=== PATIENT | female | born 1955 | race Caucasian/White ===

== ENCOUNTER 2018-02-25 10:22 | Emergency (ER) | payer OTHER ==
[~2018-02-25] VITALS: Ht 162.6 cm; Wt 57.1 kg
[~2018-02-25 10:22] MED LIST: XRL15 PO
[2018-02-25 10:27] VITALS: Ht 162.6 cm; Wt 57.1 kg
[2018-02-25] MEDS ORDERED: BENZONATATE 100MG CAP PO ONE (10:45)
[2018-02-25] MEDS ORDERED: DEXT1CAP PO (11:03)
--- NOTE | 2018-02-25 11:13 | DIAGNOSTIC IMAGING REPORT ---
CHEST 2 VIEWS ROUTINE CLINICAL HISTORY: Cough COMPARISON STUDY: No previous studies for comparison. FINDINGS: The cardiac and mediastinal contours are normal. There is no evidence of focal pulmonary consolidation. There is no evidence of failure. No pleural effusions are visualized.[ The patient appears mildly hyperinflated IMPRESSION: No active disease in the chest. Electronically signed by: Nikhil Villanueva M.D. 02/25/2018 11:12 AM Dictated Date/Time: 02/25/2018 11:11 AM
[2018-02-25] MEDS ORDERED: TOBR0.3S4 OP (11:31)
[2018-02-25] MEDS ORDERED: DOXY100C2 PO (11:31)
[2018-02-25 11:40] VITALS: BP 151/83; PULSE 103; TEMP 37; O2SAT 93
[2018-02-25] MEDS ORDERED: BENZ100C84 PO (16:37)
--- NOTE | 2018-02-25 16:37 | EMERGENCY ROOM VISIT NOTE ---
History Report prepared by Igor: Juan Cerna Under the Supervision of: Dr. Dariusz Feldman M.D. First contact with patient: 10:36 Chief Complaint: COUGH Stated Complaint: EYE DISCHARGE SEVERE COUG History of Present Illness The patient is a 63 year old female who presents to the Emergency Room with complaints of severe, persistent, non-productive cough beginning 3 weeks ago. She also states that her left eye was red and swollen upon waking this morning which prompted her visit to the ED. The patient notes that her cough is accompanied by a runny nose. She also notes that she experienced subjective fevers near the onset of her symptoms. The patient states that her cough is most severe in the morning upon waking. She denies any history of hypertension, but notes a history of clots in her lungs. The patient states that her present symptoms do not feel at all similar to her past incidences of pulmonary embolism. The patient reports that she is no longer taking Xarelto. She denies any vomiting, chest pain, shortness of breath, diarrhea, trouble urinating, or leg swelling. Source of History: patient Onset: 3 weeks ago. Position: other (global. ) Symptom Intensity: severe Timing: other (persistant ) Associated Symptoms: + fevers, No chest pain, No SOB, No vomiting, No diarrhea, No urinary symptoms Note: Associated Symptoms: Red and swollen left eye, Runny nose Denies: Leg swelling. Review of Systems See HPI for pertinent positives & negatives. A total of 10 systems reviewed and were otherwise negative. Past Medical & Surgical Medical Problems: (1) Hx of cardiac arrest Family History No significant family history Social History Smoking Status: Never Smoker Alcohol Use: none Drug Use: none Marital Status: Occupation Status: employed Current/Historical Medications Scheduled Dextromethorphan-Guaifenesin (Robitussin Cough+Chest Co 10-200 mg), 2 CAP PO UD Doxycycline Hyclate (Vibramycin), 100 MG PO BID Tobramycin Sulfate (Ophth) (Tobrex Oph Zhao), 2 DROPS OP Q6H Allergies Coded Allergies: No Known Allergies (Verified , 02/25/18) Physical Exam Vital Signs Date Time Temp Pulse Resp B/P (MAP) Pulse Ox O2 Delivery O2 Flow Rate FiO2 02/25/18 11:40 37.0 103 18 151/83 93 Room Air 02/25/18 10:27 36.7 122 18 149/89 96 Room Air Physical Exam Constitutional: Vital signs reviewed. The patient is coughing. Eyes: Pupils are equal round reactive to light. Left conjunctival injection with no discharge. ENT: Pharynx is clear without erythema or exudate. Mucous membranes are moist. Neck supple without meningeal signs. Respiratory: Clear to auscultation bilaterally. Breath sounds are equal bilaterally. Cardiovascular: Tachycardic heart rate 115. No rubs or gallops. GI: Soft, nondistended and nontender. Bowel sounds are present. Musculoskeletal: No peripheral edema. No lower extremity tenderness. Integumentary: No cyanosis. Neurological: The patient is awake and alert. No focal deficits. Psychiatric: Anxious. Medical Decision & Procedures ER Provider Diagnostic Interpretation: Radiology results as stated below per my review and the radiologist's interpretation: [~ rep ct add3]] CHEST 2 VIEWS ROUTINE CLINICAL HISTORY: Cough COMPARISON STUDY: No previous studies for comparison. FINDINGS: The cardiac and mediastinal contours are normal. There is no evidence of focal pulmonary consolidation. There is no evidence of failure. No pleural effusions are visualized.[ The patient appears mildly hyperinflated IMPRESSION: No active disease in the chest. Electronically signed by: Nikhil Villanueva M.D. 02/25/2018 11:12 AM Dictated Date/Time: 02/25/2018 11:11 AM Medications Administered Medications (Trade) Dose Ordered Sig/Braden Route Start Time Stop Time Status Last Admin Dose Admin Benzonatate (Tessalon Perles Cap) 200 mg NOW ONCE PO 02/25/18 10:45 02/25/18 10:46 DC 02/25/18 10:58 200 MG ED Course 1036: The patient was evaluated in room C05. A complete history and physical exam was performed. 1045: Ordered Benzonatate 200mg PO. 1100: I had a discussion with the patient regarding her test results. She would like to try a trial of antibiotics. I did explain to her that her symptoms may be viral due to her lack of fever. Upon reevaluation, the patient appeared to have improvement of her symptoms. I discussed tonight's findings with her. She verbalized agreement of the treatment plan. She was discharged home. Medical Decision This is a 63-year-old female presents with cough and left eye redness. Differential diagnosis includes acute bronchitis, viral URI, pneumonia, conjunctivitis. I did perform a limited focused review of portions of the patient's old chart on the electronic medical record. The patient has had no recent pertinent visits to this hospital. I did evaluate the patient as noted above. The patient is presenting with his to be conjunctivitis to her left eye. She also has had a cough for 3 weeks and is bothered by the cough itself. She denies any shortness of breath or chest pain. I did treat her with Tessalon Perles. I did order and personally review the patient's chest x-ray as described above. There is no evidence of pneumonia. I did discuss the test results with the patient. I did state that her symptoms could very well just be from a viral illness but the patient preferred to be treated with an antibiotic. She was therefore discharged with a prescription for doxycycline and Tessalon Perles and tobramycin eyedrops. Medication Reconcilliation Current Medication List: was personally reviewed by me Blood Pressure Screening Patient's blood pressure: Elevated blood pressure Blood pressure disposition: Referred to PCP The patient is hypertensive. Impression Primary Impression: Acute bronchitis Additional Impression: Conjunctivitis, left eye Scribe Attestation The scribe's documentation has been prepared under my direct and personally reviewed by me in its entirety. I confirm that the note above accurately reflects all work, treatment, procedures, and medical decision making performed by me. Departure Information Dispostion Home / Self-Care Prescriptions Doxycycline Hyclate (VIBRAMYCIN) 100 Mg Cap 100 MG PO BID for 10 Days, #20 CAP Prov: Dariusz Feldman M.D. 02/25/18 Tobramycin Sulfate (Ophth) (TOBREX OPH ZHAO) 0.3 % Zhao 2 DROPS OP Q6H for 7 Days, #1 BTL Prov: Dariusz Feldman M.D. 02/25/18 Referrals No Doctor, Assigned (PCP) Forms HOME CARE DOCUMENTATION FORM, IMPORTANT VISIT INFORMATION Patient Instructions Bronchitis Acute, ED Conjunctivitis Nonspecific, My [facility] Additional Instructions You have been examined and treated today on an emergency basis only. This is not a substitute for, or an effort to provide, complete comprehensive medical care. It is impossible to recognize and treat all injuries or illnesses in a single emergency department visit. It is therefore important that you follow up closely with your physician. Call as soon as possible for an appointment. Return for worsening symptoms or if you develop a bad headache, loss of vision, chest pain, shortness of breath, fever, vomiting, or any other concerning symptoms. Problem Qualifiers Primary Impression: Acute bronchitis Bronchitis organism: unspecified organism Qualified Codes: J20.9 - Acute bronchitis, unspecified Additional Impression: Conjunctivitis, left eye Conjunctivitis type: acute Acute conjunctivitis type: unspecified Qualified Codes: H10.32 - Unspecified acute conjunctivitis, left eye
== END 2018-02-25 11:42 | disposition home or self-care (01) ==
LOC: C.EDB 10:24 → C.EDC 11:42
DX: J20.9 Acute bronchitis, unspecified (principal); H10.32 Unspecified acute conjunctivitis, left eye

== ENCOUNTER 2022-06-10 05:13 | Observation (INO) ==
--- NOTE | 2022-04-28 11:31 | PAT Medication Instructions ---
Medication Instructions Date of Service April 28, 2022 Home Medications aspirin 81 mg capsule 81 mg PO QAM atorvastatin 20 mg tablet 20 mg PO QAM calcium carbonate 500 mg calcium (1,250 mg) chewable tablet 500 mg PO HS meloxicam 15 mg tablet 15 mg PO QAM ASK your surgeon for instructions meloxicam 15 mg tablet 15 mg PO QAM Take morning of surgery With a small sip of water, OTHERWISE NOTHING TO EAT OR DRINK AFTER MIDNIGHT: aspirin 81 mg capsule 81 mg PO QAM (unless surgeon directed otherwise) atorvastatin 20 mg tablet 20 mg PO QAM Take evening before surgery calcium carbonate 500 mg calcium (1,250 mg) chewable tablet 500 mg PO HS Other Notes If you have any questions please call us at [phone] or [phone] or [phone] or [phone]
--- NOTE | 2022-04-28 15:26 | History & Physical Report ---
Date of Service April 28, 2022 Assessment & Plan (1) Avascular necrosis of bone of right hip: Plan: PRE-OP Diagnosis: Right hip degenerative joint disease (avascular necrosis) Planned Procedure: Total hip arthroplasty Plan: Patient is scheduled to undergo this procedure at the [facility] with a 23-hour observation admission with Dr. Mendez on , May 06, 2022. Risks and complications of the procedure such as: Infection, bleeding, pain, scarring, nerve blood vessel damage, weakness, wound problems, stiffness, incomplete relief of symptoms, hardware failure, hardware loosening, wear, fracture, tendon or ligament injury, dislocation, leg length inequality, blood clots, Embolism, heart attack, stroke and were explained to the patient at her visit today. Informed consent to perform the procedure was obtained. Patient also understands risks of proceeding with surgical intervention during the COVID-19 pandemic. Currently she is asymptomatic and understands that she will need to be tested prior to surgery. Patient states she has an appointment with anesthesia later today while there she will obtain a CBC with differential, complete metabolic panel, PT/INR, blood type and screen, urinalysis, urine culture and sensitivity, EKG, hemoglobin A1c and a nasal culture for MRSA. She also has an upcoming appointment with her primary care provider Dr. Sarmiento for surgical clearance. Patient states that she plans on doing in-home physical therapy for the first 1 to 2 weeks postoperatively with [facility] home care. She states that she has a walker, raised toilet seat, shower chair and a hip kit that she will borrow from her sister. During today's visit we reviewed the total hip packet as well as precautions. We discussed discharge planning from the hospital. I provided her with paperwork to Obtain a handicap placard for her vehicle. We discussed lectures offered by [facility] in regards to joint replacement surgery via Zoom. I advised the patient that upon discharge from hospital we will prescribe her with a narcotic pain medication and anti-inflammatory. Due to her previous history of a DVT we will have her on Xarelto for the first 30 days postoperatively for blood clot prevention. Patient will be scheduled for 2-week postoperative follow-up visit with Shanel Trinh PA-C on May 21 at 9:30 AM. At that visit we will most likely implants an order for outpatient physical therapy and provide her rehab protocol. Patient verbalizes understanding of all information provided during today's visit. She thanks for the care that she received. If she has questions or concerns that should arise prior to her surgery, she will contact clinic. History of Present Illness Chief Complaint: Chief Complaint: Severe right hip pain Primary Care Provider: Eliud Martinez MD History of Present Illness (including history relevant to procedure): 67-year-old female presents the clinic today for her preoperative history and physical. Patient complains of severe right hip pain for the past 2 years. She states she was previously followed by orthopedics at [facility] in [facility], but has come to us for second opinion. She states she has had corticosteroid injections used oral anti-inflammatory agents and done therapy without any relief of her pain. She feels that therapy seem to exacerbate it. She states the pain is affecting her ability to work. She walks with a cane and a severely antalgic gait. Patient states that she has missed approximately 80 days of work this year and is afraid she may be fired due to this. She would like to undergo surgical intervention soon as possible. Review Of Systems: A 12 point review of systems is formed and is unremarkable except for those things stated in the HPI and past medical history. Past Medical History: Problems: Hypercholesterolemia Procedure History Procedure Procedure Date Comments Bilateral knee arthroscopy Shoulder surgery Allergies and Sensitivities: No Known Medication Allergies Social history: Patient states that she smokes 1 to 2 cigarettes/week. She may have 1-2 drinks of alcohol per week as well. She denies illicit drug use Family history: Cancer Current Home Meds: (Last Updated 04/28 13:13) aspirin (aspirin 81 mg oral capsule) atorvastatin meloxicam (meloxicam 15 mg oral tablet) 15 mg PO Daily Initial Wt: 04/28 60.6 kg 133 lb Allergies Allergy/AdvReac Type Severity Reaction Status Date / Time No Known Allergies Allergy Verified 04/28/22 10:12 Home Medications Medication Instructions Recorded Confirmed Type aspirin 81 mg capsule 81 mg PO QAM 04/28/22 04/28/22 History atorvastatin 20 mg tablet 20 mg PO QAM 04/28/22 04/28/22 History calcium carbonate 500 mg calcium 500 mg PO HS 04/28/22 04/28/22 History (1,250 mg) chewable tablet meloxicam 15 mg tablet 15 mg PO QAM 04/28/22 04/28/22 History Past Med/Surg History Medical History Bilateral pulmonary embolism 2014, unknown etiology, previously on AC Hx of cardiac arrest Remote hx 2000 r/t severe electrolyte imbalance (K 2.1, Na 110) from diazide therapy for leg swelling, no issues since Hyperlipidemia Mild heartburn Right leg DVT 2014, unknown etiology, previously on AC Surgical History History of esophagogastroduodenoscopy (EGD) History of shoulder surgery Right shoulder manipulation (07/09/11): LMA[place]4 at [facility] History of tonsillectomy S/P MCL repair R/L S/P rotator cuff repair Pt unsure which side Family History Other No family history of adverse response to anesthesia Social History Smoking Status: Current some day smoker Cigarettes Per Day: 1-2 weekly; Second Hand Exposure: No; Hx Alcohol Use: Yes Alcohol type: beer Hx Substance Use: No Preferred Language: Belgian Communication Ability: Effective 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 Extraocular lids are intact Throat: Deferred due to COVID-19 precautions Cardiac: Regular rate and rhythm with no murmurs or gallops she had a Lungs: Clear to auscultation throughout with no wheezing, rales or rhonchi Abdomen: Nonobese, nondistended, nontender with NABS Extremities: Right hip: Flexion to 115 degrees. External rotation to 25 degrees and internal rotation to 10 degrees. Straight leg raise test is positive. Scour impingement test positive. Logroll test positive. Patient has referred pain to the groin with all of these movements. She walks with an antalgic gait. She is neurovascularly intact in the right lower extremity. Neuro: Cranial nerves II through XII are intact no motor or sensory deficit Skin: Normal in appearance with no open skin areas or discharge Results & Data ([facility]) Diagnostic Findings Studies (relevant to the procedure): X-rays done include AP pelvis, false- profile, and cross-table lateral views of the right hip. There is an old x-ray from December 2020 over a year ago for comparison. Between these 2 films, there has been interval collapse of her femoral head, which is flattened and is now eroding the superolateral acetabulum.
--- NOTE | 2022-05-03 11:23 | Anesthesiology Consultation ---
Date of Service May 03, 2022 Assessment & Plan (1) Encounter for pre-operative examination: - COVID screening: Per assessment on 05/03: No known COVID-19 positive contacts or current COVID-19 related symptoms. Travel screen negative. Surgeon arranging preop COVID testing. Awaiting results. - S/P Right shoulder manipulation (07/09/11): LMA#4 at [facility] [place] - PCP office visit (04/30/22): "I was able to get her labs from there, significant for hyponatremia, her sodium was 127.. In order to clear pt she would need to have another BMP to repeat to make sure sodium is normal. This was ordered. Suggested CXR and EKG will await the results of these tests prior to writing and signing clearance. I have her pre op paper, will hold to this in my office." EKG performed 05/03 ([place]) was unremarkable. Updated BMP done 05/04/22 showed mild improvement but still decreased sodium at 129. Awaiting final PCP clearance (Dr. Lorrie Holden/[facility]). Chart Review Chart Review: Patient NOT seen in Pre Admission Testing History Surgery Operation Date: 06/10/22 09:10 Proposed Procedures p Right Total Hip Arthroplasty - Godwin Mendez MD Height/Weight Height: 5 ft 4 in Weight: 58.967 kg Allergies Allergy/AdvReac Type Severity Reaction Status Date / Time No Known Allergies Allergy Verified 04/28/22 10:12 Medications Home Medications Medication Instructions Recorded Confirmed Last Taken aspirin 81 mg capsule 81 mg PO QAM 04/28/22 04/28/22 Unknown atorvastatin 20 mg tablet 20 mg PO QAM 04/28/22 04/28/22 Unknown calcium carbonate 500 mg calcium 500 mg PO HS 04/28/22 04/28/22 Unknown (1,250 mg) chewable tablet meloxicam 15 mg tablet 15 mg PO QAM 04/28/22 04/28/22 Unknown Past Medical History Medical History Bilateral pulmonary embolism 2014, unknown etiology, previously on AC Hx of cardiac arrest Remote hx 2000 r/t severe electrolyte imbalance (K 2.1, Na 110) from diazide therapy for leg swelling, no issues since Hyperlipidemia Mild heartburn Right leg DVT 2014, unknown etiology, previously on AC Past Family History Family History Other No family history of adverse response to anesthesia Past Surgical History Surgical History History of esophagogastroduodenoscopy (EGD) History of shoulder surgery Right shoulder manipulation (07/09/11): LMA#4 at [facility] [place] History of tonsillectomy S/P MCL repair R/L S/P rotator cuff repair Pt unsure which side Social History Smoking Status: Current some day smoker tobacco type: cigarettes Smoking cigarettes per day: 1-2 weekly Do You Dip or Chew Tobacco: No Hx Alcohol Use: Yes Alcohol type: beer alcohol intake frequency: a few times a month Hx Substance Use: No substance use type: does not use Lab Results Anesthesia Preop Results Results Anesthesia Widget: WBC 6.93 K/uL (4.8-10.8) 04/29/22 Hgb 14.9 g/dL (12.0-16.0) 04/29/22 Hct 42.6 % (37-47) 04/29/22 Plt 399 K/uL (130-400) 04/29/22 Na 129 mmol/L (136-145) L 05/04/22 K 3.8 mmol/L (3.5-5.1) 05/04/22 Cl 98 mmol/L (98-107) 05/04/22 CO2 23 mmol/L (21-32) 05/04/22 BUN 4 mg/dl (6-23) L 05/04/22 Creat 0.58 mg/dl (0.6-1.2) L 05/04/22 Glucose Level 98 mg/dl (70-99(Fasting)) 05/04/22 PT 10.4 Seconds (9.0-12.0) 04/29/22 INR 1.0 (0.9-1.1) 04/29/22 HA1c 5.5 % (4.5-5.6) 04/29/22 Urine Color Yellow 05/03/22 Urine Appearance Clear (Clear) 05/03/22 Urine pH 6.5 (4.5-7.5) 05/03/22 Urine Specific [place] 1.002 (1.000-1.030) 05/03/22 Urine Protein Negative (Negative) 05/03/22 Urine Glucose (UA) Negative (Negative) 05/03/22 Urine Ketones Negative (Negative) 05/03/22 Urine Blood 1+ (Negative) H 05/03/22 Urine Nitrite Negative (Negative) 05/03/22 Urine Bilirubin Negative (Negative) 05/03/22 Urine Urobilinogen Negative (Negative) 05/03/22 Urine Leukocyte Esterase 2+ (Negative) H 05/03/22 Testing Electrocardiogram Date: 05/03/22 NSR at 87bpm. Chest X-Ray Date: 05/04/22 FINDINGS: Frontal and lateral radiographs of the chest demonstrate the cardiomediastinal silhouette to be within normal limits. The lungs are hyperinflated with flattening of the hemidiaphragms and increase in the retrosternal space characteristic of underlying chronic obstructive pulmonary disease. The lungs are clear of alveolar opacities. There is no evidence for effusion bilaterally. There is no evidence for vascular congestion. There is no acute osseous pathology. IMPRESSION: No acute cardiopulmonary disease. Mild to moderate COPD.
--- NOTE | 2022-06-02 15:08 | History & Physical Report ---
Date of Service June 02, 2022 Assessment & Plan (1) Avascular necrosis of bone of right hip: Plan: PRE-OP Diagnosis: Right hip degenerative joint disease (avascular necrosis) Planned Procedure: Right Total hip arthroplasty Plan: Patient is scheduled to undergo this procedure at the [facility] with a 23-hour observation admission with Dr. Mendez on , June 10, 2022. Risks and complications of the procedure such as: Infection, bleeding, pain, scarring, nerve blood vessel damage, weakness, wound problems, stiffness, incomplete relief of symptoms, hardware failure, hardware loosening, wear, fracture, tendon or ligament injury, dislocation, leg length inequality, blood clots, Embolism, heart attack, stroke and were explained to the patient at her visit today. Informed consent to perform the procedure was obtained. Patient also understands risks of proceeding with surgical intervention during the COVID-19 pandemic. Currently she is asymptomatic and understands that she will need to be tested prior to surgery. Patient has already met with anesthesia and has an up-to-date CBC with differential, complete metabolic panel, PT/INR, blood type and screen, urinalysis, urine culture and sensitivity, EKG, hemoglobin A1c and a nasal culture for MRSA. Preoperative medical clearance from Dr. Sarmiento has been obtained. Patient states that she plans on doing in-home physical therapy for the first 1 to 2 weeks postoperatively with [facility]. Patient states that she will most likely elect to do her outpatient physical therapy at [facility] in [place]. She states that she has a walker, raised toilet seat, shower chair and a hip kit that she will borrow from her sister. During today's visit we reviewed the total hip packet as well as precautions. We discussed discharge planning from the hospital. I provided her with paperwork to Obtain a handicap placard for her vehicle. We discussed lectures offered by [facility] in regards to joint replacement surgery via Zoom. I advised the patient that upon discharge from hospital we will prescribe her with a narcotic pain medication and anti-inflammatory. Due to her previous history of a DVT we will have her on Xarelto for the first 30 days postoperatively for blood clot prevention. Patient will be scheduled for 2-week postoperative follow-up visit with Myself on June 23 at 1 PM. At that visit we will Provide the patient with an order for outpatient physical therapy and provide her rehab protocol. Patient verbalizes understanding of all information provided during today's visit. She thanks for the care that she received. If she has questions or concerns that should arise prior to her surgery, she will contact clinic. History of Present Illness Chief Complaint: Chief Complaint: Severe right hip pain Primary Care Provider: Eliud Martinez MD History of Present Illness (including history relevant to procedure): 67-year-old female presents the clinic today for her preoperative history and physical. Patient complains of severe right hip pain for the past 2 years. She states she was previously followed by orthopedics at [facility] in [facility], but has come to us for second opinion. She states she has had corticosteroid injections used oral anti-inflammatory agents and done therapy without any relief of her pain. She feels that therapy seem to exacerbate it. She states the pain is affecting her ability to work. She walks with a cane and a severely antalgic gait. Patient states that she has missed approximately 80 days of work this year and is afraid she may be fired due to this. She would like to undergo surgical intervention soon as possible. Patient was initially scheduled for surgical intervention on May 06, But was canceled due to her history of tobacco use. Patient has been over 30 days tobacco free since her last visit. Review Of Systems: A 12 point review of systems is formed and is unremarkable except for those things stated in the HPI and past medical history. Past Medical History: Problems: Hypercholesterolemia Procedure History Procedure Procedure Date Comments Bilateral knee arthroscopy Shoulder surgery Allergies and Sensitivities: No Known Medication Allergies Social history: Patient states she has not used any type of tobacco product for over 30 days. She may have 1-2 drinks of alcohol per week as well. She denies illicit drug use Family history: Cancer Current Home Meds: (Last Updated 06/02 10:25) aspirin (aspirin 81 mg oral capsule) atorvastatin ciprofloxacin (Cipro 500 mg oral tablet) 500 mg PO tid UTI meloxicam (meloxicam 15 mg oral tablet) 15 mg PO Daily Initial Wt: 06/02 60.6 kg 133 lb Allergies Allergy/AdvReac Type Severity Reaction Status Date / Time No Known Allergies Allergy Verified 04/28/22 10:12 Home Medications Medication Instructions Recorded Confirmed Type aspirin 81 mg capsule 81 mg PO QAM 04/28/22 04/28/22 History atorvastatin 20 mg tablet 20 mg PO QAM 04/28/22 04/28/22 History calcium carbonate 500 mg calcium 500 mg PO HS 04/28/22 04/28/22 History (1,250 mg) chewable tablet meloxicam 15 mg tablet 15 mg PO QAM 04/28/22 04/28/22 History Past Med/Surg History Medical History Bilateral pulmonary embolism 2014, unknown etiology, previously on AC Hx of cardiac arrest Remote hx 2000 r/t severe electrolyte imbalance (K 2.1, Na 110) from diazide therapy for leg swelling, no issues since Hyperlipidemia Mild heartburn Right leg DVT 2014, unknown etiology, previously on AC Surgical History History of esophagogastroduodenoscopy (EGD) History of shoulder surgery Right shoulder manipulation (07/09/11): LMA#4 at [facility] History of tonsillectomy S/P MCL repair R/L S/P rotator cuff repair Pt unsure which side Family History Other No family history of adverse response to anesthesia Social History Smoking Status: Current some day smoker Cigarettes Per Day: 1-2 weekly; Second Hand Exposure: No; Hx Alcohol Use: Yes Alcohol type: beer Hx Substance Use: No Preferred Language: Tajik Communication Ability: Effective Accounts Payable Processor Required: No Beliefs That Will Affect Care: None marital status: Current Living Situation: Alone current occupational status: employed Feels Safe at Home: Yes Assistive Devices: Cane and Glasses Review of Systems All systems reviewed & are unremarkable except as noted in Subjective Physical Exam Physical Exam: Physical Exam: (relevant to the procedure, including heart and lung evaluation) General: Alert and oriented x3 with proper grooming and hygiene Eyes: Pupils are equal and reactive to light with accommodation. Extraocular lids are intact Throat: Deferred due to COVID-19 precautions Cardiac: Regular rate and rhythm with no murmurs or gallops she had a Lungs: Clear to auscultation throughout with no wheezing, rales or rhonchi Abdomen: Nonobese, nondistended, nontender with NABS Extremities: Right hip: Flexion to 115 degrees. External rotation to 25 degrees and internal rotation to 10 degrees. Straight leg raise test is positive. Scour impingement test positive. Logroll test positive. Patient has referred pain to the groin with all of these movements. She walks with an antalgic gait. She is neurovascularly intact in the right lower extremity. Neuro: Cranial nerves II through XII are intact no motor or sensory deficit Skin: Normal in appearance with no open skin areas or discharge Results & Data ([facility]) Diagnostic Findings Studies (relevant to the procedure): X-rays done include AP pelvis, false- profile, and cross-table lateral views of the right hip. There is an old x-ray from December 2020 over a year ago for comparison. Between these 2 films, there has been interval collapse of her femoral head, which is flattened and is now eroding the superolateral acetabulum. Code Status & VTE Plan VTE Prophylaxis Plan VTE Prophylaxis will be ordered: Yes
[~2022-06-10 05:13] MED LIST changes: +ROPIVACAINE 0.5% HCL/PF 150 MG, BUPIVACAINE 0.75% MPF 20 ML, EPINEPHrine 0.15 MG, Ketor... INFIL SCH; -XRL15 PO
[2022-06-10] MEDS ORDERED: ceFAZolin 2000MG 2,000 MG/15 ML SYR IV SCH (06:00)
[2022-06-10] MEDS ORDERED: traMADol HCL 50 MG TABLET PO SCH (06:00)
[2022-06-10] MEDS ORDERED: TRANEXAMIC ACID 1,000 MG **IV Pre-op IV SCH (06:00)
[2022-06-10] MEDS ORDERED: ROPIVACAINE 0.5% HCL/PF 150 MG, BUPIVACAINE 0.75% MPF 20 ML, EPINEPHrine 0.15 MG, Ketor... INFIL SCH (06:00)
[2022-06-10] MEDS ORDERED: Scopolamine 1 MG TDSY TD SCH (06:00)
[2022-06-10] MEDS ORDERED: LR 60ML/HR IV SCH (06:00)
[2022-06-10] MEDS ORDERED: LR 500ML BOLUS, THEN 15ML/HR IV SCH (06:00)
[2022-06-10] MEDS ORDERED: FAMOTIDINE 20 MG TAB PO SCH (06:00)
[2022-06-10] MEDS ORDERED: dexAMETHasone 4 MG TAB PO SCH (06:00)
[2022-06-10] MEDS ORDERED: TRANEXAMIC ACID 1,000 MG **IV Intra-op IV SCH (06:00)
[2022-06-10] MEDS ORDERED: CeleBREX 200 MG CAP PO SCH (06:00)
[2022-06-10] MEDS ORDERED: ACETAMINOPHEN 500 MG TAB PO SCH (06:00)
[2022-06-10] MEDS ORDERED: BUPIVACAINE 0.5 % 5 MG/1 ML PF 10ML VIAL ONE (06:24)
[2022-06-10] MEDS ORDERED: fentaNYL citrate 100 MCG/2 ML VIAL IV PRN (06:31)
[2022-06-10] MEDS ORDERED: ATROPINE SULFATE 0.1 MG/ML 10ML SYR IV PRN (06:31)
[2022-06-10] MEDS ORDERED: ePHEDrine sulfate 50 MG/ML AMP IV PRN (06:31)
[2022-06-10] MEDS ORDERED: ONDANSETRON INJ 2 MG/ML 2 ML VIAL IV PRN ×2 (06:31→10:32)
[2022-06-10] MEDS ORDERED: PROPOFOL IV EMULSION 10 MG/ML 20 ML VIAL IV ONE ×2 (06:35→07:57)
[2022-06-10] MEDS ORDERED: LIDOCAINE 2% MPF LOCAL 5 ML VIAL INFIL ONE (06:35)
[2022-06-10] MEDS ORDERED: MIDAZOLAM HCL 1 MG/ML 2ML VIAL ONE ×2 (06:35→07:24)
[2022-06-10] MEDS ORDERED: fentaNYL citrate 100 MCG/2 ML VIAL ONE (06:35)
[2022-06-10] MEDS ORDERED: ORTHO JOINT ANESTHETIC ONE (06:43)
--- NOTE | 2022-06-10 06:44 | History & Physical Bridge Note ---
Date of Service June 10, 2022 History & Physical Bridge Note I have examined the patient, reviewed the History & Physical and in the interval since the performance of the History & Physical I have noted the following changes of clinical significance: no changes noted
[2022-06-10] MEDS ORDERED: ceFAZolin 330 MG/ML 1 GM VIAL ONE (07:17)
[2022-06-10] MEDS ORDERED: PHENYLEPHRINE 100MCG/ML 5ML SYR ONE (07:19)
[2022-06-10] MEDS ORDERED: ePHEDrine sulfate 50 MG/ML AMP ONE (07:57)
--- NOTE | 2022-06-10 08:39 | Operative Report ---
Post Operative Report Pre & Post Diagnosis Operation Date: 06/10/22 07:00 Pre-Op Diagnosis: Avascular necrosis of bone of right hip Post-Op Diagnosis: Avascular necrosis of bone of right hip I identified the patient and participated in the time-out.: Yes Procedure Operation Date: 06/10/22 07:00 Actual Procedures p Right Total Hip Arthroplasty, Ganglion Cyst Excision(Right) - Godwin Mendez MD Surgeon Godwin Mendez MD Slicing Machine Operator/Tender Dilma Olmos MD and Umair Irene PA-C Estimated Blood Loss 100 Findings Consistent with Post-Op Diagnosis Approximately 6 x 4 cm oval-shaped ganglion cyst was noted coming off the posterior aspect of the hip capsule. This was excised en bloc and sent for permanent section Specimens 1. Right femoral head with synovitis 2. Right hip ganglion cyst Anesthesia Type Spinal MAC Complications none Disposition Disposition: Recovery Room Indications 67-year-old female with right hip avascular necrosis and end-stage osteoarthritis refractory to conservative management. X-rays demonstrate superior femoral head collapse and right lower extremity shortening. I had a long discussion with her about the risks and benefits of surgery, alternatives, and expected outcomes. After reviewing all these she elected to proceed with surgery. All questions were answered. Informed consent was signed. Description of Procedure Patient was identified in the preoperative holding area and the surgical site, right hip, was marked. A spinal anesthetic was placed, then the patient was brought back to the main operating room, placed in the operating table and moved into the lateral decubitus position. Axillary roll was placed. All bony prominences were padded. Perioperative antibiotics and tranexamic acid 1 gram IV were administered. Operative extremity was prepped and draped in the normal sterile fashion. Prior to incision a multidisciplinary timeout was called. All in the room were in agreement. We began by making an incision for a posterior approach to the hip. We dissected down through subcutaneous tissues to the level of the fascia. The fascia was incised in line with the incision. Charnley bow was placed. At this point we inspected the trochanteric bursa and fat covering the piriformis. There was a large approximately 6 x 4 cm oval soft mass that had the consistency of fluid within it. Clinically this was consistent with a ganglion cyst. Taking great care to protect the sciatic nerve I then carefully dissected the ganglion cyst off of its surrounding soft tissue attachments until the stalk was amputated at its connection to the posterior hip capsule medially on its insertion to the bone posteriorly. Upon amputating the cyst off the capsule abundant clear synovial type fluid came out from the cyst as well as the hip joint consistent with a ganglion cyst. The cyst was then passed off and sent for permanent section. Next, the piriformis and short external rotators were dissected off the posterior aspect of the hip. A box cut was made in the capsule. The femoral head was dislocated. There was a moderate amount of villous synovitis noted a long the capsular lining that was removed with electrocautery and the pituitary rongeur. The femoral neck cut was then made at our preoperative template. The acetabulum was then exposed. The labrum was sharply excised. Contents of the cotyloid fossa were removed with electrocautery. We then began reaming at a size 8 mm less than our preoperative template. We reamed up by [address] the way up to a size 52 mm cup. This gave us good bleeding cancellus bone circumferentially. The acetabulum was then irrigated out and dried. The real [place] Gription cup was then impacted down into position with 45 degrees of lateral opening and 25 degrees of anteversion. A single cancellous bone screw was placed up into the ilium. Excellent fixation was obtained. A trial liner for a 32 mm femoral head was then placed. Anterior and inferior osteophytes were then removed with an osteotome and rongeur. Next we turned our attention to the femur. The lateral neck was removed with a box osteotome. Intramedullary guide was used followed by the lateralizing reamer. We then reamed up to a size 4 [place] stem. We then broached all the way up to a size 3. We began trialing with a high offset neck and a +5 head. Hip was reduced. Leg lengths were symmetric. The hip was stable in extension and external rotation, and stable in the sleeper position. At 90 degrees of hip flexion the hip could be internally rotated 65 degrees before levering out of the cup. I was very happy with the stability exam. Therefore the hip was dislocated and the femoral trial was removed. The acetabulum was re-exposed, and the trial liner was removed. An Altrx polyethylene liner for a 32 mm femoral head was then impacted into the shell. The locking mechanism was checked to ensure that it had engaged which it had. The femur was re-exposed. The femoral canal was irrigated and dried. The real size 3 high offset [place] femoral stem was opened up. This was impacted down into position. It sat at the same level as the femoral trial. Therefore the 32 mm ceramic femoral head with a +5 mm offset was opened up and gently impacted down onto the trunnion. The hip was atraumatically reduced. Another 1 gram of IV tranexamic acid was started prior to closure. The wound was irrigated out with sterile Betadine solution. The periarticular injection cocktail was then placed. The short external rotators, piriformis, and posterior capsule were repaired through drill holes in the greater trochanter using #2 Vicryl. The fascia was run with a looped #1 PDS. The subcutaneous layer was closed with #1 PDS. The dermal layer was closed with 2-0 Vicryl. Zip line was used for the skin followed by a Silverlon dressing. A compressive dressing was then placed. The patient was then rolled supine. Leg lengths were rechecked and were symmetric. An abduction pillow was placed. Sedation was lifted and the patient was transferred to recovery room in stable condition. Summary of implants: Depuy [place] Gription Acetabular Shell Sector Cup, 52 mm outer diameter [place] Cancellous bone screw, 6.5 x 30 mm [place] Altrx Polyethylene Acetabular Liner, Neutral, with a 32 mm inner diameter DePuy Sarpy Femoral stem with Porocoat, 12/14 taper, size 3 high offset 32 mm ceramic femoral head with +5 offset Postoperative course: Patient will be admitted to the hospital from the recovery room. Patient will be weightbearing as tolerated with posterior hip precautions. Aspirin for DVT prophylaxis I attest to the content of the Intraoperative Record and any orders documented therein. Any exceptions are noted below.
--- NOTE | 2022-06-10 08:54 | Operative Report ---
Post Operative Report Pre & Post Diagnosis Operation Date: 06/10/22 07:00 Pre-Op Diagnosis: Avascular necrosis of bone of right hip Post-Op Diagnosis: Avascular necrosis of bone of right hip I identified the patient and participated in the time-out.: Yes Procedure Operation Date: 06/10/22 07:00 Actual Procedures p Right Total Hip Arthroplasty, Ganglion Cyst Excision(Right) - Godwin Mendez MD Surgeon AURORA Mendez MD Substitute Teacher Dilma Olmos MD and Umair Irene PA-C Estimated Blood Loss 100 Findings Consistent with Post-Op Diagnosis see operative report Specimens see operative report Drains none Complications none Disposition Accompanied Patient To Recovery: Yes Indications This 67-year-old female presented to the office with complaints of right hip pain. She had tried conservative care measures without improvement. She elected to proceed with surgical intervention after being educated about potential risks and outcomes. Preoperative imaging was obtained. Description of Procedure Patient was administered a spinal anesthetic and then taken to the operating room where she was given sedation. She was prepped and draped in the usual sterile fashion. Please see 'saranya Mendez's operative report for specifics of the procedure. I was present for the entire case from initial patient positioning through final wound closure. Assistance was provided in tissue retraction, hemostasis, trial implant placement, final implant placement, and final wound closure. Patient was taken to the recovery room in satisfactory condition. I attest to the content of the Intraoperative Record and any orders documented therein. Any exceptions are noted below.
--- NOTE | 2022-06-10 08:57 | Operative Report ---
Post Operative Report Pre & Post Diagnosis Operation Date: 06/10/22 07:00 Pre-Op Diagnosis: Avascular necrosis of bone of right hip Post-Op Diagnosis: Avascular necrosis of bone of right hip I identified the patient and participated in the time-out.: Yes Procedure Operation Date: 06/10/22 07:00 Actual Procedures p Right Total Hip Arthroplasty, Ganglion Cyst Excision(Right) - Godwin Mendez MD Surgeon Emilie Mendez MD Stonemason Dilma Olmos MD and Umair Irene PA-C Estimated Blood Loss 100 Findings Consistent with Post-Op Diagnosis Consistent with post op diagnosis Specimens Periarticular ganglion cyst. Description of Procedure I participated in prepping dressing and assisted Dr. Mendez during the procedure. Please see Dr. Mendez note. I attest to the content of the Intraoperative Record and any orders documented therein. Any exceptions are noted below.
[2022-06-10] MEDS ORDERED: oxyCODONE HCL IR 5 MG TAB (IMMEDIATE RELEASE) PO PRN (10:32)
[2022-06-10] MEDS ORDERED: MAGNESIUM HYDROXIDE SUSP 30 ML UDC PO PRN (10:32)
[2022-06-10] MEDS ORDERED: HYDROmorphone INJ 0.5 MG/0.5 ML SYR IV PRN (10:32)
[2022-06-10] MEDS ORDERED: NALOXONE HCL 0.4 MG/1 ML VIAL/CARP IV PRN (10:32)
[2022-06-10] MEDS ORDERED: ALUMINUM/MAGNESIUM SUSP 30 ML UDC PO PRN (10:32)
[2022-06-10] MEDS ORDERED: diphenhydrAMINE 50 MG/ML VIAL IV PRN (10:32)
[2022-06-10] MEDS ORDERED: METOCLOPRAMIDE HCL INJ 5 MG/ML 2 ML VIAL IV PRN (10:32)
[2022-06-10] MEDS ORDERED: bisacodyL 10 MG SUPP PR PRN (10:32)
[2022-06-10] MEDS: SODIUM CHLORIDE 0.9% 1000ML 1,000 ML IV SCH ×2 (10:41→21:03)
[2022-06-10] MEDS: DOCUSATE SODIUM 100 MG CAP PO SCH ×2 (11:02→19:37)
[2022-06-10] MEDS: ATORVASTATIN 20 MG TAB PO SCH (11:02)
[2022-06-10] MEDS: MULTIVITAMIN TAB PO SCH (11:02)
[2022-06-10] MEDS: KETOROLAC TROMETHAMINE 15 MG/ML VIAL IV SCH ×3 (11:03→23:19)
[2022-06-10] MEDS: ASPIRIN 81 MG ECTAB PO SCH (11:03)
--- NOTE | 2022-06-10 11:24 | Operative Report ---
Post Operative Report Pre & Post Diagnosis Operation Date: 06/10/22 07:00 Pre-Op Diagnosis: Avascular necrosis of bone of right hip Post-Op Diagnosis: Avascular necrosis of bone of right hip I identified the patient and participated in the time-out.: Yes Procedure Operation Date: 06/10/22 07:00 Actual Procedures p Right Total Hip Arthroplasty, Ganglion Cyst Excision(Right) - Godwin Mendez MD Surgeon Emilie Mendez MD Thermoforming Machine Operator Dilma Olmos MD and Umair Irene PA-C Estimated Blood Loss 100 Findings Consistent with Post-Op Diagnosis Consistent with post op diagnosis. Specimens No specimens Description of Procedure I participate in prepping dressing and assisted Dr. Mendez during the procedure. Please see Dr. Mendez note. I attest to the content of the Intraoperative Record and any orders documented therein. Any exceptions are noted below.
--- NOTE | 2022-06-10 12:20 | XRay Report ---
XR pelvis 1-2V routine CLINICAL HISTORY: Postoperative evaluation. COMPARISON: Pelvis radiograph April 28, 2022. FINDINGS: Alignment of the total right hip arthroplasty is anatomic. There is no periprosthetic frac ture or unexpected radiopaque foreign body. IMPRESSION: Expected findings following total right hip arthroplasty. ACT 112: Negative or not required by law. Electronically signed by: Fabricio Aguilar M.D. 06/10/2022 12:18 PM
--- NOTE | 2022-06-10 13:23 | Anesthesiology Progress Note ---
Date of Service June 10, 2022 Anesthesia Post Procedure Vital Signs Vital Signs: Temp Pulse Pulse Resp BP Pulse Ox O2 Del Method 06/10/22 12:27 72 16 126/62 99 Room Air 06/10/22 11:30 36.3 C L 66 18 125/72 96 06/10/22 11:02 36.8 C 67 16 124/60 99 Room Air 06/10/22 10:32 36.5 C 72 16 119/72 97 Room Air 06/10/22 10:10 65 16 117/62 99 Room Air 06/10/22 10:00 69 16 113/67 96 Room Air 06/10/22 09:50 36.3 C L 75 19 113/62 96 Room Air 06/10/22 09:40 69 15 110/81 97 Room Air 06/10/22 09:30 71 12 100/81 96 Room Air 06/10/22 09:20 36.2 C L 75 15 110/63 100 Room Air 06/10/22 09:10 81 16 104/65 100 Room Air 06/10/22 09:00 75 15 107/65 100 Oxymask 06/10/22 08:53 36.0 C L 84 12 96/60 L 100 Oxymask 06/10/22 05:35 36.8 C 94 H 20 138/76 98 Room Air O2 Flow Rate 06/10/22 12:27 06/10/22 11:30 06/10/22 11:02 06/10/22 10:32 06/10/22 10:10 06/10/22 10:00 06/10/22 09:50 06/10/22 09:40 06/10/22 09:30 06/10/22 09:20 06/10/22 09:10 06/10/22 09:00 5 06/10/22 08:53 9 06/10/22 05:35 Transfer of Care Handoff Completed per policy Notes Mental Status: alert / awake / arousable and participated in evaluation Patient Amnestic to Procedure: No Nausea / Vomiting: adequately controlled Pain: adequately controlled Airway Patency, RR, SpO2: stable & adequate BP & HR: stable & adequate Hydration State: stable & adequate Neuraxial Anesthesia: was administered and sensory block is resolving Anesthetic Complications: no major complications apparent and Pt Satisfied with anesthetic care
[2022-06-10] MEDS: ACETAMINOPHEN 500 MG TAB PO SCH ×2 (13:48→21:04)
[2022-06-10] MEDS: ceFAZolin 2000MG 2,000 MG/15 ML SYR IV SCH ×2 (14:54→23:18)
[2022-06-10] MEDS ORDERED: TRANEXAMIC ACID / 0.7% NACL 1,000 MG/100 ML BAG IV SCH (15:00)
[2022-06-10] MEDS: Scopolamine CHECK PATCH PLACEMENT SCH ×2 (15:35→23:19)
[2022-06-10] MEDS ORDERED: Scopolamine CHECK PATCH PLACEMENT SCH (16:00)
[2022-06-10] MEDS: ASCORBIC ACID 500 MG TAB PO SCH (17:20)
[2022-06-10] MEDS: FERROUS GLUCONATE 324 MG TAB PO SCH (17:20)
[2022-06-10] MEDS ORDERED: SENNA 8.6 MG TAB PO SCH (21:00)
[2022-06-10] MEDS ORDERED: CALCIUM CARBONATE 1250MG TAB PO SCH (21:00)
[2022-06-11] MEDS: KETOROLAC TROMETHAMINE 15 MG/ML VIAL IV SCH (05:28)
[2022-06-11] MEDS: ACETAMINOPHEN 500 MG TAB PO SCH ×2 (05:29→13:17)
[2022-06-11] MEDS ORDERED: Nursing to Pharmacy Communication SCH (05:45)
[2022-06-11 06:09] LABS: Basophils # (auto) 0.02 K/uL (0-0.2); Basophils % (auto) 0.2 %; Hemoglobin 10.8 g/dl (12.0-16.0); Immature Granulocytes # (auto) 0.14 K/uL (0.00-0.02); Immature Granulocytes % (auto) 1.3 %; Lymphocytes # (auto) 1.89 K/uL (1.2-3.4); Lymphocytes % (auto) 17.7 %; Mean Corpuscular Hemoglobin 31.6 pg (25.0-34.0); Mean Corpuscular Volume 87.7 fL (80.0-100.0); Mean Platelet Volume 9.4 fL (9.4-12.3); Monocytes # (auto) 0.67 K/uL (0.24-0.82); Monocytes % (auto) 6.3 %; Neutrophils # (auto) 7.95 K/uL (1.4-6.5); Neutrophils % (auto) 74.5 %; Platelet Count 264 K/uL (130-400); RDW Coefficient of Variation 14.3 % (11.5-14.5); RDW Standard Deviation 45.5 fL (36.4-46.3); Red Blood Count 3.42 M/uL (3.93-5.22); White Blood Count 10.67 K/ul (4.8-10.8)
[2022-06-11 06:30] LABS: BUN Creatinine Ratio 10.4 (10-20); Calcium 8.4 mg/dl (8.5-10.1); Creatinine Clr Calc Pharmacy 100.9 ml/min; Est GFR (African American) 119.3 ml/min; Est GFR (Non-African American) 102.9 ml/min; Potassium 3.9 mmol/L (3.5-5.1)
[2022-06-11] MEDS: FERROUS GLUCONATE 324 MG TAB PO SCH (07:51)
[2022-06-11] MEDS: ASPIRIN 81 MG ECTAB PO SCH (07:51)
[2022-06-11] MEDS: ATORVASTATIN 20 MG TAB PO SCH (07:52)
[2022-06-11] MEDS: ASCORBIC ACID 500 MG TAB PO SCH (07:52)
[2022-06-11] MEDS: MULTIVITAMIN TAB PO SCH (07:52)
[2022-06-11] MEDS: Scopolamine CHECK PATCH PLACEMENT SCH (07:53)
[2022-06-11] MEDS: DOCUSATE SODIUM 100 MG CAP PO SCH (07:54)
[2022-06-11] MEDS ORDERED: dexAMETHasone 10 MG in SYRINGE 0 ML IV SCH (08:00)
[2022-06-11] MEDS ORDERED: RIVAROXABAN 10 MG TABLET PO SCH (09:00)
--- NOTE | 2022-06-11 15:14 | Discharge Summary ---
Date of Service June 11, 2022 Admission HPI Per Admitting Provider History of Present Illness (including history relevant to procedure): 67-year-old female presents the clinic today for her preoperative history and physical. Patient complains of severe right hip pain for the past 2 years. She states she was previously followed by orthopedics at [facility] in [facility], but has come to us for second opinion. She states she has had corticosteroid injections used oral anti-inflammatory agents and done therapy without any relief of her pain. She feels that therapy seem to exacerbate it. She states the pain is affecting her ability to work. She walks with a cane and a severely antalgic gait. Patient states that she has missed approximately 80 days of work this year and is afraid she may be fired due to this. She would like to undergo surgical intervention soon as possible. Patient was initially scheduled for surgical intervention on May 06, But was canceled due to her history of tobacco use. Patient has been over 30 days tobacco free since her last visit. Review Of Systems: A 12 point review of systems is formed and is unremarkable except for those things stated in the HPI and past medical history. Past Medical History: Problems: Hypercholesterolemia Procedure History Procedure Procedure Date Comments Bilateral knee arthroscopy Shoulder surgery Allergies and Sensitivities: No Known Medication Allergies Social history: Patient states she has not used any type of tobacco product for over 30 days. She may have 1-2 drinks of alcohol per week as well. She denies illicit drug use Family history: Cancer Current Home Meds: (Last Updated 06/02 10:25) aspirin (aspirin 81 mg oral capsule) atorvastatin ciprofloxacin (Cipro 500 mg oral tablet) 500 mg PO tid UTI meloxicam (meloxicam 15 mg oral tablet) 15 mg PO Daily Initial Wt: 06/02 60.6 kg 133 lb Discharge Data Procedures Performed Operation Date: 06/10/22 07:00 Actual Procedures p Right Total Hip Arthroplasty, Ganglion Cyst Excision(Right) - Godwin Mendez MD Hospital Course (1) Avascular necrosis of bone of right hip: Patient was admitted to [facility] after undergoing an elective Right Total Hip Arthroplasty by Dr. Mendez on 06/10/22. Her surgery was performed with Spinal anesthesia and IV sedation. She tolerated the procedure well without any complications. She was allowed out of bed, weight bear as tolerated right lower extremity with the assistance of a walker. She was instructed to use an abduction pillow when in bed. She was given Xarelto for post op DVT prophylaxis along with mobility, lynne stockings and SCD's. Her home medications were continued. She tolerated a regular diet during her inpatient stay. Her vitals remained stable during her inpatient stay. She was seen and evaluated by PT and OT, she was deemed safe for discharge when out of bed. She was instructed on her posterior hip precautions to abide by at all times. She was given an abduction pillow to use when in bed and recommended a standard pillow between knees when in bed. Her pain was well controlled during her inpatient stay. She was given IV Ancef perioperatively for surgical prophylaxis. Her dressings was clean and dry on POD 1. She will continue the Xarelto for 30 days after surgery. She was seen by Case management for all her discharge needs. She requested home with home health, arrangements have been made. She was discharged to her home in stable condition on 06/11/22.
--- NOTE | 2022-06-11 15:18 | Orthopedic Progress Note ---
Date of Service June 11, 2022 Assessment & Plan (1) Avascular necrosis of bone of right hip: Plan: Pt is post op day #1 s/p a right total hip arthroplasty. She is doing well and is ready to be d/c home with daughter and home health services. She has been advised and able to verbalize her hip precautions. She will be d/c with a hip abduction pillow and advised on sleeping w/ this and while in bed until 6 weeks postop. She will use a standard pillow between legs when sitting. She was advised her legs can swell and to continue wearing the GUILHERME hose as well as doing ankle pumps if in a sitting position. She was prescribed Xarelto for DVT prophylaxis x30 days. She was advised on pain control. Diclofenac and oxycodone was prescribed. Advised on taking as prescribed. She is scheduled to f/u in the office as an outpt. She was advised if any questions or concerns to contact the office immediately. She verbalized understanding of plan and is in agreement Present on Admission?: Yes Admission and Anticipated Discharge Date Admission Date: June 10, 2022 Supervising Physician Co-Signing Physician Notes Subjective Pt reports she is doing well and is requesting to be d/c home w/ her daughter who is staying w/ her. She states she feels like she is ready to go home. She denies any calf pain, CP, SOB or fever. Physical Exam Constitutional: cooperative and comfortable Musculoskeletal: Head/Neck/Chest: normocephalic dressing was intact w/o any drainage or shadowing on the dressing. Pt able to tolerate gentle ROM of the hip and knee. She has minimal edema of the RLE as anticipated. She has no calf pain or tenderness. Palpable Dorsal and tibial pulses. BLE are NVI Results & Data ([facility]) Vital Signs (Past 12 Hours) Vital Signs Temp Pulse Resp BP Pulse Ox O2 Del Method 06/11/22 15:02 36.6 C 81 16 136/70 97 Room Air 06/11/22 11:31 36.5 C 63 16 134/76 99 Room Air 06/11/22 08:00 Room Air 06/11/22 07:34 36.5 C 81 16 125/72 99 Room Air 06/11/22 04:30 36.6 C 77 18 127/65 96 Room Air
== END 2022-06-11 16:01 | disposition home health service (06) ==
LOC: ASU 05:13 → 3E 05:13